=== PATIENT | male | born 2000 | race Caucasian/White ===

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

== ENCOUNTER 2023-11-17 19:39 | Emergency (ER) | payer BC ==
[2023-11-17] MEDS: Lactated Ringers 1,000 ML IV SCH (20:37)
[2023-11-17 20:45] LABS: BASOPHILS ABSOLUTE AUTO 0.1 K/mm3 (0.0-0.2); BASOPHILS PERCENT AUTO 0.6 % (0.0-1.0); EOSINOPHILS ABSOLUTE AUTO 0.4 K/mm3 (0.0-0.4); EOSINOPHILS PERCENT AUTO 5.4 % (0.0-6.0); HEMATOCRIT 40.9 % (42.0-52.0); HEMOGLOBIN 15.1 gm/dl (14.0-18.0); IMMATURE GRAN ABSOLUTE AUTO 0.04 K/mm3 (0.00-0.05); IMMATURE GRAN PERCENT AUTO 0.5 % (0.0-0.4); LYMPHOCYTES ABSOLUTE AUTO 2.6 K/mm3 (1.0-4.8); LYMPHOCYTES PERCENT AUTO 32.7 % (24.0-44.0); MEAN CORPUSCULAR HEMOGLOBIN 30.8 pg (28.0-32.0); MEAN CORPUSCULAR HGB CONC 36.9 g/dl (32.0-36.0); MEAN CORPUSCULAR VOLUME 83.3 fl (83.0-99.0); MEAN PLATELET VOLUME 9.4 fl (9.4-12.4); MONOCYTES ABSOLUTE AUTO 0.7 K/mm3 (0.0-0.8); MONOCYTES PERCENT AUTO 9.4 % (0.0-8.0); NEUTROPHILS ABSOLUTE AUTO 4.1 K/mm3 (1.8-7.7); NEUTROPHILS PERCENT AUTO 51.4 % (41.0-71.0); PLATELET COUNT,PLT 289 K/mm3 (150-400); RED BLOOD CELL COUNT 4.91 M/mm3 (4.52-5.90)
[2023-11-17 21:10] LABS: A/G RATIO 1.2 (1-2); ANION GAP 13.6 (5-15); BILIRUBIN TOTAL 0.7 mg/dL (0.2-1.0); CALCIUM 8.9 mg/dL (8.5-10.1); EST CRCL DRUG DOSING (CG) 113.05 mL/min; POTASSIUM,K 3.6 mEq/L (3.5-5.1); PROTEIN TOTAL,TP 7.3 g/dl (6.4-8.2)
[2023-11-17 21:22] LABS: CORONAVIRUS COVID-19 NAA POSITIVE (NEGATIVE); INFLUENZA A NAA NEGATIVE (NEGATIVE); RESPIRATORY SYNCYTIAL VIR NAA POSITIVE (NEGATIVE)
== END 2023-11-17 23:51 ==
LOC: JD.ED 19:39
DX: U07.1 COVID-19 (principal); J21.0 Acute bronchiolitis due to respiratory syncytial virus; R94.39 Abnormal result of other cardiovascular function study; Z86.16 Personal history of COVID-19; Z79.899 Other long term (current) drug therapy
CPT/HCPCS: 0241U; 36415; 80053; 84484; 85025; 93005; 96360; 99285; J7120